=== PATIENT | male | born 1970 | race Caucasian/White ===

== ENCOUNTER 2025-05-11 19:46 | Emergency (ER) | payer OTHER ==
[~2025-05-11] VITALS: Ht 182.9 cm; Wt 88.5 kg
[2025-05-11 19:54] VITALS: TEMP 98.5
[2025-05-11 20:20] LABS: PLATELET COUNT (AUTO) 247 K/uL (150-450); RED BLOOD CELL COUNT(AUTO) 4.29 MIL/uL (4.5-6.0); RED CELL DISTRIBUTION WIDTH 14.5 % (11.5-15.0); WHITE BLOOD COUNT (AUTO) 6.5 K/uL (4.3-11.0)
[2025-05-11] MEDS ORDERED: MORPHINE SULFATE INJ 4 MG/ML DISP.SYRIN ONE (20:28)
[2025-05-11] MEDS: IV NS 0.9% 1,000 ML BAG IV ONE (20:30)
[2025-05-11] MEDS: MORPHINE SULFATE INJ 2 MG/ML DISP.SYRIN IV ONE (20:30)
[2025-05-11 20:32] LABS: CALCIUM, SERUM 8.9 mg/dL (8.5-10.1); CREATININE 1.1 mg/dL (0.6-1.3); SODIUM SERUM 140 mmol/L (136-145); UREA NITROGEN, BLOOD 23 mg/dL (7-18)
[2025-05-11 20:36] LABS: CREATINE KINASE, TOTAL 314 U/L (39-308)
[2025-05-11 20:45] LABS: ASPARTATE AMINOTRANSFERASE 28 U/L (15-37); TOTAL PROTEIN, SERUM 7.0 g/dL (6.4-8.2)
[2025-05-11] MEDS ORDERED: TDAP [DIPH/PERTUSSIS/TET] 0.5 ML VIAL IM ONE (20:50)
[2025-05-11 20:54] LABS: LACTIC ACID 3.6 mmol/L (0.4-2.0)
[2025-05-11] MEDS: TDAP [DIPH/PERTUSSIS/TET] 0.5 ML VIAL IM ONE (20:55)
[2025-05-11 21:00] VITALS: BP 127/89; O2SAT 95
== END 2025-05-11 21:42 | disposition short-term general hospital (02) ==
LOC: ER 19:48
DX: T75.4XXA Electrocution, initial encounter (principal); M54.2 Cervicalgia; M79.641 Pain in right hand; R00.0 Tachycardia, unspecified; W86.8XXA Exposure to other electric current, initial encounter; Y93.89 Activity, other specified; Y92.009 Unspecified place in unspecified non-institutional (private) residence as the place of occurrence of the external cause; Y99.8 Other external cause status
CPT/HCPCS: 99285; 96374; 96361; 90471; 93005; 90715; 85025; 82550; 83605; 80053; 84484; J2270; J7030; 36415; 82553